=== PATIENT | male | born 1965 | race Caucasian/White ===

== ENCOUNTER 2018-03-30 22:41 | Emergency (ER) | payer BC, SELFPAY ==
[2018-03-30 22:42] VITALS: BP 165/100; PULSE 71; RESP 14; TEMP 36.6; O2SAT 99; BMI 33.3
--- NOTE | 2018-03-30 23:28 | ED.DCSUM_ITS ---
- ER Visit Summary Date of Service: 03/30/18 Chief Complaint: [] Headache History of Present Illness: The patient is a 52 M complaining of a headache since this afternoon. Gradual onset. Continuous. He has had similar headaches like this in the past. As a throbbing pain behind his eyes. It started on the top of his head and migrated down. He has nausea with photophobia. No formal diagnosis of migraines. He tried Advil and Tylenol intermittently with mild relief. He gets headaches once a month. He had a CT of his head and 2016 that showed nothing acute. This was done in our department. This was for headache. Physical Examination: [] Vital signs reviewed General: Well-nourished well-developed Head: Normocephalic atraumatic Eyes: Pupils equal round and reactive to light extraocular movements intact ENT: TMs clear no hemotympanum no trauma Neck: Nontender full range of motion Cardiovascular: Regular rate rhythm no murmurs normal S1-S2 Respiratory: No distress clear to auscultation bilaterally chest nontender Abdomen: Soft nontender nondistended normal bowel sounds no masses Back: Nontender no CVA tenderness Extremities: Nontender active range of motion ?4 extremities no trauma Skin: Normal color no trauma Neuro alert oriented cranial nerves II through XII intact normal strength sensation reflexes Test Results: [] Emergency Department Course and Treatment: [] I discussed treatment with the patient. At this time I think he has a migraine. He wanted intramuscular injections instead of an IVC could go home and sleep. I think this is reasonable. I do not think he has an acute emergent cause of his headache other than a migraine. He was given intramuscular Compazine, Toradol, Benadryl. Will be given a prescription for Imitrex and will follow-up as an outpatient. Treatment Plan: [] Disposition: [] Impression: [] Migraine headache This note was generated with [employer] dictation software. It may contain incorrect words, spelling, and punctuation that were not noted in review of the chart prior to signing ED Disposition - Plan for ED Patient: Chief Complaint: Headache Referrals: Jd Wolfe MD [Primary Care Provider] -
--- NOTE | 2018-03-30 23:28 | ED.DEP ---
ED Disposition - Plan for ED Patient: Disposition: Home or Assisted Living Chief Complaint: Headache Instructions: ED Headache Migraine Prescriptions: Sumatriptan Succinate [Imitrex] 50 mg PO .X1 PRN PRN 5 Days #10 tab PRN Reason: Headache Referrals: Jd Wolfe MD [Primary Care Provider] -
[2018-03-30] MEDS: DiphenhydrAMINE 50 MG/ML Syringe IM (23:38)
[2018-03-30] MEDS: Ketorolac 60 MG/2 ML Vial IM (23:39)
[2018-03-30] MEDS: proCHLORPERazine 10 MG/2 ML Vial IM (23:41)
[2018-03-31 00:19] VITALS: PULSE 67; RESP 16; O2SAT 97
== END 2018-03-31 00:21 | disposition home or self-care (01) ==
PROVIDERS: Emergency Provider Emergency Medicine; Family Provider Family Medicine; PCP Family Medicine
DX: G43.909 Migraine, unspecified, not intractable, without status migrainosus (principal)
CPT/HCPCS: 96372; 99282